=== PATIENT | male | born 1950 | race American Indian/Alaskan Native ===

== ENCOUNTER 2020-11-07 17:29 | Emergency (ER) | payer MEDICARE, OTHER ==
[~2020-11-07] VITALS: Ht 180.3 cm; Wt 136.4 kg
[2020-11-07 18:17] LABS: BASOPHILS % (AUTO) 0.1 % (0-1); EOSINOPHILS % (AUTO) 0 % (0-6); HEMATOCRIT 36.9 % (42.0-52.0); HEMOGLOBIN 12.4 g/dl (14.0-17.9); LYMPHOCYTES # (AUTO) 1.1 X10'3 (1.1-4.8); LYMPHOCYTES % (AUTO) 3.6 % (21-51); MEAN CORPUSCULAR HEMOGLOBIN 30.4 PG (27.0-31.0); MEAN CORPUSCULAR HGB CONC 33.5 g/dL (33.0-36.5); MEAN CORPUSCULAR VOLUME 90.8 FL (78-98); MEAN PLATELET VOLUME 8.1 FL (7.4-10.4); MONOCYTES # (AUTO) 2.3 X10'3 (0-0.9); MONOCYTES % (AUTO) 7.7 % (2-12); NEUTROPHILS # (AUTO) 26.3 X10'3 (1.8-7.7); NEUTROPHILS % (AUTO) 88.6 % (42-75); PLATELET COUNT 253 X10'3 (140-440); RED BLOOD COUNT 4.06 X10'6 (4.70-6.10); RED CELL DISTRIBUTION WIDTH 13.8 % (11.5-14.5)
[2020-11-07 18:24] LABS: WHITE BLOOD COUNT 29.7 X10'3 (4.5-11.0)
[2020-11-07 18:42] LABS: ALANINE AMINOTRANSFERASE 33 U/L (12-78); ALBUMIN 2.4 G/DL (3.4-5.0); ALBUMIN/GLOBULIN RATIO 0.5 (1.1-1.5); ALKALINE PHOSPHATASE 141 IU/L (46-116); ANION GAP 10 (8-16); ASPARTATE AMINO TRANSFERASE 19 U/L (10-37); BILIRUBIN,TOTAL 1.2 MG/DL (0.1-1.0); BLOOD UREA NITROGEN 35 MG/DL (7-18); BUN/CREATININE RATIO 21.2 (5.4-32.0); CALCIUM 8.2 MG/DL (8.5-10.1); CHLORIDE 94 MMOL/L (99-107); CREATININE 1.65 MG/DL (0.60-1.10); GLUCOSE 371 MG/DL (70-104); POTASSIUM 4.6 MMOL/L (3.5-5.1); SODIUM 125 MMOL/L (135-145); TOTAL CARBON DIOXIDE 20.9 MMOL/L (24-32); TOTAL PROTEIN 7.6 G/DL (6.4-8.2); eGFR 41 ML/MIN
[2020-11-07 18:47] LABS: TOTAL CELLS COUNTED 100
[2020-11-07 18:53] LABS: PLATELET ESTIMATE NORMAL; TOXIC GRANULATION 1+
[2020-11-07] MEDS ORDERED: CefTRIAXone 2gm/D5W 50ml BAG 50 ML IV ONE (19:30)
[2020-11-07] MEDS ORDERED: normal saline 1000ML IV soln IV ONE (19:50)
[2020-11-07] MEDS ORDERED: AZIT250T PO (20:58)
[2020-11-07] MEDS ORDERED: ondansetron/PF 4mg/2ml inj IV ONE (21:10)
[2020-11-07] MEDS ORDERED: diltiazem-NS 100mg/100ml 100 ML IV SCH (21:10)
[2020-11-07] MEDS ORDERED: diltiazem 5mg/ml 5ml inj. IV ONE (21:10)
[2020-11-07 21:22] LABS: CLARITY,URINE CLEAR (Clear); COLOR,URINE AMBER (Yellow); GLUCOSE, URINE >=1000 mg/dl (Neg); KETONES,URINE NEGATIVE (Neg); LEUKOCYTE ESTERASE ,URINE NEGATIVE (Neg); NITRITES, URINE NEGATIVE (Neg); OCCULT BLOOD,URINE TRACE-INTACT (Neg); PROTEIN,URINE 100 mg/dl (Neg); UROBILINOGEN,URINE >=8.0 E.U/dL (0.2-1.0)
[2020-11-07 21:24] LABS: UA COLLECTION TYPE CLN CATCH MIDSTREAM
[2020-11-07] MEDS ORDERED: acetaminophen 325mg tablet PO ONE (21:30)
[2020-11-07 21:37] LABS: AMORPHOUS URATES 2+; BACTERIA,URINE NONE SEEN /HPF (Neg); MUCUS STRANDS NONE SEEN /LPF (Neg); RBC,URINE 0-2 /HPF (0-2); SQUAMOUS EPITHELIAL CELL,UR FEW /LPF (FEW); WBC,URINE 0-4 /HPF (0-4)
[2020-11-07] MEDS ORDERED: HYDROcodone/acetaminophen 10/325mg tab PO ONE (21:50)
[2020-11-07 22:39] VITALS: BP 109/81
== END 2020-11-07 22:45 | disposition left against medical advice (07) ==
LOC: ER 17:32
DX: A41.9 Sepsis, unspecified organism (principal); J18.9 Pneumonia, unspecified organism; R50.9 Fever, unspecified; R06.02 Shortness of breath; R05 Cough; E86.0 Dehydration; E87.1 Hypo-osmolality and hyponatremia; I48.91 Unspecified atrial fibrillation; I10 Essential (primary) hypertension; E11.9 Type 2 diabetes mellitus without complications; Z79.2 Long term (current) use of antibiotics
CPT/HCPCS: 36415; 71045; 80053; 81001; 83605; 83735; 83880; 84145; 84484; 85007; 85025; 87040; 87502; 87503; 93005; 96365; 96367; 96375; 99285; J0696; J2405; J7030; J3490

== ENCOUNTER 2020-11-26 16:28 | Emergency (ER) | payer MEDICARE, OTHER ==
[~2020-11-26] VITALS: Ht 180.3 cm; Wt 136.4 kg
[2020-11-26 16:38] VITALS: BP 159/80
[2020-11-26 18:50] LABS: BASOPHILS % (AUTO) 0.6 % (0-1); EOSINOPHILS # (AUTO) 0.1 X10'3 (0-0.9); EOSINOPHILS % (AUTO) 1.2 % (0-6); HEMATOCRIT 39.9 % (42.0-52.0); HEMOGLOBIN 13.4 g/dl (14.0-17.9); LYMPHOCYTES # (AUTO) 1.3 X10'3 (1.1-4.8); LYMPHOCYTES % (AUTO) 16.3 % (21-51); MEAN CORPUSCULAR HEMOGLOBIN 30.1 PG (27.0-31.0); MEAN CORPUSCULAR HGB CONC 33.7 g/dL (33.0-36.5); MEAN CORPUSCULAR VOLUME 89.3 FL (78-98); MEAN PLATELET VOLUME 7.4 FL (7.4-10.4); MONOCYTES # (AUTO) 0.7 X10'3 (0-0.9); MONOCYTES % (AUTO) 8.8 % (2-12); NEUTROPHILS # (AUTO) 5.6 X10'3 (1.8-7.7); NEUTROPHILS % (AUTO) 73.1 % (42-75); PLATELET COUNT 284 X10'3 (140-440); RED BLOOD COUNT 4.47 X10'6 (4.70-6.10); RED CELL DISTRIBUTION WIDTH 14.5 % (11.5-14.5); WHITE BLOOD COUNT 7.7 X10'3 (4.5-11.0)
[2020-11-26 18:59] LABS: ALANINE AMINOTRANSFERASE 104 U/L (12-78); ALBUMIN 2.8 G/DL (3.4-5.0); ALBUMIN/GLOBULIN RATIO 0.5 (1.1-1.5); ALKALINE PHOSPHATASE 125 IU/L (46-116); ANION GAP 6 (8-16); ASPARTATE AMINO TRANSFERASE 103 U/L (10-37); BILIRUBIN,TOTAL 0.6 MG/DL (0.1-1.0); BLOOD UREA NITROGEN 10 MG/DL (7-18); BUN/CREATININE RATIO 10.1 (5.4-32.0); CALCIUM 8.6 MG/DL (8.5-10.1); CHLORIDE 94 MMOL/L (99-107); CREATININE 0.99 MG/DL (0.60-1.10); GLUCOSE 158 MG/DL (70-104); POTASSIUM 4.7 MMOL/L (3.5-5.1); SODIUM 129 MMOL/L (135-145); TOTAL CARBON DIOXIDE 28.9 MMOL/L (24-32); TOTAL PROTEIN 8.6 G/DL (6.4-8.2); eGFR 74 ML/MIN
[2020-11-26] MEDS ORDERED: BENZ-16 PO (19:12)
== END 2020-11-26 19:29 | disposition home or self-care (01) ==
LOC: ER 16:29
DX: R05 Cough (principal); R50.9 Fever, unspecified; R07.89 Other chest pain; I10 Essential (primary) hypertension; E11.9 Type 2 diabetes mellitus without complications; Z79.899 Other long term (current) drug therapy
CPT/HCPCS: 36415; 71045; 80053; 85025; 99284

== ENCOUNTER 2020-12-02 13:33 | Emergency (ER) | payer MEDICARE, OTHER ==
[~2020-12-02] VITALS: Ht 180.3 cm; Wt 136.4 kg
[~2020-12-02 13:33] MED LIST: BENZ-16 PO
--- NOTE | 2020-12-02 14:12 | NUR ---
MD Hardy updated on pt chief complaint, VSs and Covid status. Received VO to order portable chest x-ray and further orders to be placed by provider.
[2020-12-02] MEDS ORDERED: BENZ-16 PO (15:07)
[2020-12-02] MEDS ORDERED: PRED50TA PO (15:07)
== END 2020-12-02 15:27 | disposition home or self-care (01) ==
LOC: ER 13:34
DX: U07.1 COVID-19 (principal); J12.82 Pneumonia due to coronavirus disease 2019; R05 Cough; R09.81 Nasal congestion; R06.02 Shortness of breath; I10 Essential (primary) hypertension; E11.9 Type 2 diabetes mellitus without complications; Z79.899 Other long term (current) drug therapy
CPT/HCPCS: 71045; 99283

== ENCOUNTER 2021-05-05 11:42 | Day surgery (SDC) | payer MEDICARE, OTHER ==
[2021-04-30 10:14] LABS: BASOPHILS # (AUTO) 0.1 X10'3 (0-0.2); BASOPHILS % (AUTO) 0.8 % (0-1); EOSINOPHILS # (AUTO) 0.3 X10'3 (0-0.9); EOSINOPHILS % (AUTO) 3.1 % (0-6); HEMATOCRIT 41.1 % (42.0-52.0); LYMPHOCYTES # (AUTO) 2.3 X10'3 (1.1-4.8); MEAN CORPUSCULAR VOLUME 88.4 FL (78-98); MEAN PLATELET VOLUME 7.5 FL (7.4-10.4); MONOCYTES # (AUTO) 0.9 X10'3 (0-0.9); MONOCYTES % (AUTO) 9.8 % (2-12); NEUTROPHILS # (AUTO) 5.6 X10'3 (1.8-7.7); NEUTROPHILS % (AUTO) 61.3 % (42-75); PLATELET COUNT 279 X10'3 (140-440); RED BLOOD COUNT 4.65 X10'6 (4.70-6.10); RED CELL DISTRIBUTION WIDTH 14.1 % (11.5-14.5); WHITE BLOOD COUNT 9.1 X10'3 (4.5-11.0)
[2021-04-30 10:25] LABS: ALBUMIN 3.3 G/DL (3.4-5.0); ANION GAP 7 (8-16); BLOOD UREA NITROGEN 20 MG/DL (7-18); BUN/CREATININE RATIO 17.4 (5.4-32.0); CALCIUM 8.7 MG/DL (8.5-10.1); CHLORIDE 101 MMOL/L (99-107); CREATININE 1.15 MG/DL (0.60-1.10); GLUCOSE 163 MG/DL (70-104); POTASSIUM 4.6 MMOL/L (3.5-5.1); SODIUM 136 MMOL/L (135-145); eGFR 63 ML/MIN
[2021-04-30 10:28] LABS: PARTIAL THROMBOPLASTIN TIME 31 SECONDS (22-32)
[~2021-05-05] VITALS: Ht 180.3 cm; Wt 137.7 kg
[2021-05-05] VITALS (8 sets, daily range): BP systolic 93–123; BP diastolic 44–65
[~2021-05-05 11:42] MED LIST changes: -BENZ-16 PO; +PRED50TA PO
[2021-05-05] MEDS ORDERED: fentaNYL/PF 50MCG/1 ML 2ML syringe ONE (12:03)
[2021-05-05] MEDS ORDERED: midazolam 1 mg/ML 2ml injection ONE (12:03)
[2021-05-05] MEDS ORDERED: nitroGLYCERIN-Tridil 50MG/D5W 250 ML IV ONE (12:08)
[2021-05-05] MEDS ORDERED: verapamil 2.5 mg/ml inj IV ONE (12:08)
[2021-05-05] MEDS ORDERED: LIDOcaine 1% (10mg/ml)w/preservative injection 20ml MDV ONE (12:10)
[2021-05-05] MEDS ORDERED: iohexol 350MG/ML 100ml bottle IV ONE (12:11)
[2021-05-05] MEDS ORDERED: LANTUS SUBCUT (12:17)
[2021-05-05] MEDS ORDERED: METF-438 PO (12:17)
[2021-05-05] MEDS ORDERED: FLO110IN INH (12:17)
[2021-05-05] MEDS ORDERED: HYDR-3972 PO (12:17)
[2021-05-05] MEDS ORDERED: SACU1TAB PO (12:17)
[2021-05-05] MEDS ORDERED: EXEN10PE3 (12:17)
[2021-05-05] MEDS ORDERED: BISO5TAB21 PO (12:17)
[2021-05-05] MEDS ORDERED: SPIR25TA5 PO (12:17)
[2021-05-05] MEDS ORDERED: APIX5TAB3 PO (12:17)
[2021-05-05] MEDS ORDERED: FLO0.4C PO (12:17)
[2021-05-05] MEDS ORDERED: ALBU18HF2 (12:17)
[2021-05-05] MEDS ORDERED: SAXA5TAB PO (12:17)
[2021-05-05] MEDS ORDERED: CHOL20002 PO (12:18)
[2021-05-05] MEDS ORDERED: LIDOcaine/PRILOcaine 5gm cream TP ONE (12:20)
[2021-05-05] MEDS ORDERED: LORazepam 0.5 MG tablet PO PRN (12:20)
[2021-05-05] MEDS ORDERED: normal saline 1,000 ML IV SCH (12:20)
[2021-05-05] MEDS ORDERED: diphenhydrAMINE 25mg capsule PO PRN (12:20)
[2021-05-05] MEDS ORDERED: heparin 1,000unit/ml 10ml vial 10 ML ONE (12:22)
[2021-05-05] MEDS ORDERED: ondansetron/PF 4mg/2ml inj IV PRN (13:50)
[2021-05-05] MEDS ORDERED: OXAZEpam 15mg capsule PO PRN (13:55)
[2021-05-05] MEDS ORDERED: proCHLORperazine 10 MG/2 ml inj IV PRN (13:55)
== END 2021-05-05 15:40 | disposition home or self-care (01) ==
LOC: SSTAY O 11:42
PROVIDERS: ATTEND Internal Medicine Interventional Cardiology
DX: R94.39 Abnormal result of other cardiovascular function study (principal); I25.10 Atherosclerotic heart disease of native coronary artery without angina pectoris; G47.33 Obstructive sleep apnea (adult) (pediatric); E11.9 Type 2 diabetes mellitus without complications; I10 Essential (primary) hypertension; I48.91 Unspecified atrial fibrillation; I42.0 Dilated cardiomyopathy; M19.90 Unspecified osteoarthritis, unspecified site; E78.5 Hyperlipidemia, unspecified; E66.9 Obesity, unspecified; Z68.41 Body mass index [BMI] 40.0-44.9, adult; Z79.899 Other long term (current) drug therapy; Z87.891 Personal history of nicotine dependence; Z79.4 Long term (current) use of insulin; Z86.16 Personal history of COVID-19
CPT/HCPCS: 36415; 80048; 85025; 85610; 85730; 93005; 93458; 99152; 99153; C1769; C1894; J1644; J2001; J2250; J3010; J7030; Q0163; Q9967; A4620; A5120; J3490

== ENCOUNTER 2022-09-12 23:10 | Inpatient (IN) | payer MEDICARE, OTHER ==
[~2022-09-12] VITALS: Ht 180.3 cm; Wt 145.6 kg
[~2022-09-12 23:10] MED LIST changes: +ALBU18HF2; +APIX5TAB3 PO; +BISO5TAB21 PO; +CHOL20002 PO; +EXEN10PE3; +FLO0.4C PO; +FLO110IN INH; +HYDR-3972 PO; +LANTUS SUBCUT; +METF-438 PO; -PRED50TA PO; +SACU1TAB PO; +SAXA5TAB PO; +SPIR25TA5 PO
[2022-09-12 23:49] LABS: BASOPHILS # (AUTO) 0.1 X10'3 (0-0.2); BASOPHILS % (AUTO) 0.3 % (0-1); EOSINOPHILS % (AUTO) 0.1 % (0-6); HEMATOCRIT 39.6 % (42.0-52.0); HEMOGLOBIN 13.4 g/dl (14.0-17.9); LYMPHOCYTES % (AUTO) 6.9 % (21-51); MEAN CORPUSCULAR HEMOGLOBIN 30.2 PG (27.0-31.0); MEAN CORPUSCULAR HGB CONC 33.8 g/dL (33.0-36.5); MEAN CORPUSCULAR VOLUME 89.2 FL (78-98); MEAN PLATELET VOLUME 7.4 FL (7.4-10.4); MONOCYTES # (AUTO) 2.5 X10'3 (0-0.9); MONOCYTES % (AUTO) 8.5 % (2-12); NEUTROPHILS # (AUTO) 24.3 X10'3 (1.8-7.7); NEUTROPHILS % (AUTO) 84.2 % (42-75); PLATELET COUNT 236 X10'3 (140-440); RED BLOOD COUNT 4.44 X10'6 (4.70-6.10); RED CELL DISTRIBUTION WIDTH 14.2 % (11.5-14.5)
[2022-09-12 23:52] LABS: WHITE BLOOD COUNT 28.9 X10'3 (4.5-11.0)
[2022-09-13] VITALS (13 sets, daily range): BP systolic 95–119; BP diastolic 47–63
[2022-09-13 00:03] LABS: ALANINE AMINOTRANSFERASE 21 U/L (12-78); ALBUMIN/GLOBULIN RATIO 0.6 (1.1-1.5); ALKALINE PHOSPHATASE 81 IU/L (46-116); ANION GAP 12 (8-16); ASPARTATE AMINO TRANSFERASE 21 U/L (10-37); BILIRUBIN,TOTAL 1.3 MG/DL (0.1-1.0); BLOOD UREA NITROGEN 38 MG/DL (7-18); BUN/CREATININE RATIO 17.8 (5.4-32.0); CALCIUM 8.5 MG/DL (8.5-10.1); CHLORIDE 97 MMOL/L (99-107); CREATININE 2.14 MG/DL (0.60-1.10); GLUCOSE 141 MG/DL (70-104); POTASSIUM 4.1 MMOL/L (3.5-5.1); SODIUM 131 MMOL/L (135-145); TOTAL CARBON DIOXIDE 22.1 MMOL/L (24-32); eGFR 30 ML/MIN
[2022-09-13] MEDS ORDERED: CefTRIAXone 2gm/D5W 50ml BAG 50 ML IV ONE ×2 (00:20→01:10)
[2022-09-13] MEDS ORDERED: normal saline 1000ML IV soln IV ONE (00:20)
[2022-09-13] MEDS ORDERED: normal saline 1000ML IV soln IVB ONE ×2 (00:30→01:35)
[2022-09-13 00:34] LABS: TOTAL CELLS COUNTED 100
[2022-09-13 00:35] LABS: PLATELET ESTIMATE NORMAL; TOXIC GRANULATION 1+; TOXIC VACUOLATION 1+
[2022-09-13] MEDS ORDERED: piperacillin/tazo 3.375gm/50ml 50 ML IV STA (01:06)
[2022-09-13 01:13] LABS: CLARITY,URINE SLIGHTLY CLOUDY (Clear); COLOR,URINE AMBER (Yellow); GLUCOSE, URINE 500 mg/dl (Neg); KETONES,URINE TRACE mg/dl (Neg); LEUKOCYTE ESTERASE ,URINE TRACE (Neg); NITRITES, URINE NEGATIVE (Neg); OCCULT BLOOD,URINE TRACE-INTACT (Neg); PH,URINE 5.5 (4.8-8.0); PROTEIN,URINE 30 mg/dl (Neg); UROBILINOGEN,URINE 0.2 E.U/dL (0.2-1.0)
[2022-09-13 01:24] LABS: UA COLLECTION TYPE URINAL
[2022-09-13 01:27] LABS: BACTERIA,URINE 1+ /HPF (Neg); RBC,URINE NONE SEEN /HPF (0-2); SQUAMOUS EPITHELIAL CELL,UR MANY /LPF (FEW)
--- NOTE | 2022-09-13 01:30 | NUR ---
PT COMPLAINED OF CP. PROVIDER DR. WEBB WAS NOTIFIED. EKG DONE.
[2022-09-13] MEDS ORDERED: BISO10TA16 PO (01:52)
[2022-09-13] MEDS ORDERED: DAPA5TAB PO (01:52)
[2022-09-13] MEDS ORDERED: NORepinephrine 8mg/ 250ml NS 250 ML IV PRN ×2 (02:15→10:53)
--- NOTE | 2022-09-13 04:01 | NUR ---
SPUTUM CULTURE WAS REJECTED. EDUCATED PT. ON HOW TO GIVE PROPER SPUTUM SPECIMEN. PT STATED THAT HE CAN NOT GIVE IT AT THIS TIME. DR. NINO NOTIFIED.
--- NOTE | 2022-09-13 05:40 | NUR ---
norepi not admistered for map staying 60 and above.
[2022-09-13] MEDS ORDERED: piperacillin/tazo 3.375gm/50ml 50 ML IV ONE ×3 (06:00→08:00)
--- NOTE | 2022-09-13 09:08 | NUR ---
CL TO LEFT NECK BY DR MCMAHON. PT SISSY WELL. DR MINOR AT BS FOR ADMIT
[2022-09-13] MEDS ORDERED: ondansetron/PF 4mg/2ml inj IV PRN (09:45)
[2022-09-13] MEDS ORDERED: magnesium hydroxide 30ml (MOM) UD suspension PO PRN (09:45)
[2022-09-13] MEDS ORDERED: LIDOcaine 2% 10ml TOPICAL JELLY (Urojet) TP ONE (09:45)
[2022-09-13] MEDS ORDERED: acetaminophen 325mg tablet PO PRN ×2 (09:45)
[2022-09-13] MEDS ORDERED: CefTRIAXone/D5W-Rocephin 1gm 50 ML IV SCH (09:58)
[2022-09-13] MEDS ORDERED: levoFLOXACIN-Levaquin 750MG/D5 150 ML IV SCH (09:59)
--- NOTE | 2022-09-13 11:00 | NUR ---
Patient to room 2014 via [facility]. Upon arrival patient refused to put a gown on. He used several profanities to express how he would not be putting a gown on. Dr. Darling came and spoke with the patient. Dr. Darling stated that he (the patient) is very sick and needs to comply with what nursing is saying so that they (the nurses) can help him get better. Patient eventually agreed. Patient placed in gown, skin check done, patient placed on our monitors and was let in bedside.
[2022-09-13] MEDS: normal saline 1000ml 1,000 ML IV SCH ×3 (11:36→20:08)
[2022-09-13] MEDS ORDERED: normal saline 1000ml 1,000 ML IVB ONE (12:05)
[2022-09-13] MEDS ORDERED: SACU1TAB7 PO (13:10)
[2022-09-13] MEDS ORDERED: normal saline 1000ml 1,000 ML IV SCH (13:25)
[2022-09-13] MEDS ORDERED: normal saline 1000ml 1,000 ML IV ONE (13:25)
[2022-09-13] MEDS ORDERED: ALBU17AE26 IH (15:18)
--- NOTE | 2022-09-13 18:07 | NUR ---
Problems reprioritized. Patient report given, questions answered & plan of care reviewed with KOTA Yanes.
[2022-09-13] MEDS: apixaban 5mg tablet PO SCH (20:06)
[2022-09-14] VITALS (13 sets, daily range): BP systolic 94–153; BP diastolic 54–83
[2022-09-14] MEDS ORDERED: CefTRIAXone/D5W-Rocephin 1gm 50 ML IV SCH (01:00)
[2022-09-14 03:11] LABS: BASOPHILS % (AUTO) 0.3 % (0-1); EOSINOPHILS # (AUTO) 0.1 X10'3 (0-0.9); EOSINOPHILS % (AUTO) 0.9 % (0-6); HEMATOCRIT 36.9 % (42.0-52.0); HEMOGLOBIN 12.2 g/dl (14.0-17.9); LYMPHOCYTES # (AUTO) 1.7 X10'3 (1.1-4.8); LYMPHOCYTES % (AUTO) 10.3 % (21-51); MEAN CORPUSCULAR HEMOGLOBIN 29.6 PG (27.0-31.0); MEAN CORPUSCULAR VOLUME 89.7 FL (78-98); MEAN PLATELET VOLUME 7.7 FL (7.4-10.4); MONOCYTES # (AUTO) 1.3 X10'3 (0-0.9); MONOCYTES % (AUTO) 7.9 % (2-12); NEUTROPHILS % (AUTO) 80.6 % (42-75); PLATELET COUNT 207 X10'3 (140-440); RED BLOOD COUNT 4.11 X10'6 (4.70-6.10); RED CELL DISTRIBUTION WIDTH 14.5 % (11.5-14.5); WHITE BLOOD COUNT 16.2 X10'3 (4.5-11.0)
[2022-09-14 03:24] LABS: APTT 32 SECONDS (22-32)
[2022-09-14 03:25] LABS: ALANINE AMINOTRANSFERASE 19 U/L (12-78); ALBUMIN 2.3 G/DL (3.4-5.0); ALBUMIN/GLOBULIN RATIO 0.5 (1.1-1.5); ALKALINE PHOSPHATASE 72 IU/L (46-116); ANION GAP 7 (8-16); ASPARTATE AMINO TRANSFERASE 16 U/L (10-37); BILIRUBIN,TOTAL 0.5 MG/DL (0.1-1.0); BLOOD UREA NITROGEN 25 MG/DL (7-18); BUN/CREATININE RATIO 21.9 (5.4-32.0); CALCIUM 7.9 MG/DL (8.5-10.1); CHLORIDE 107 MMOL/L (99-107); CREATININE 1.14 MG/DL (0.60-1.10); GLUCOSE 138 MG/DL (70-104); MAGNESIUM 2.1 MG/DL (1.5-2.4); PHOSPHORUS 2.4 MG/DL (2.3-4.5); POTASSIUM 4.3 MMOL/L (3.5-5.1); SODIUM 138 MMOL/L (135-145); TOTAL CARBON DIOXIDE 24.4 MMOL/L (24-32); TOTAL PROTEIN 6.8 G/DL (6.4-8.2); eGFR 63 ML/MIN
[2022-09-14 03:39] LABS: PLATELET ESTIMATE NORMAL; TOTAL CELLS COUNTED 100
[2022-09-14 03:40] LABS: TOXIC GRANULATION 1+; TOXIC VACUOLATION 1+
[2022-09-14] MEDS: normal saline 1000ml 1,000 ML IV SCH ×3 (07:26→21:56)
[2022-09-14] MEDS: apixaban 5mg tablet PO SCH ×2 (07:26→20:36)
--- NOTE | 2022-09-14 09:11 | NUR ---
Problems reprioritized. Patient report given, questions answered & plan of care reviewed with Francisca ESCUDERO.
--- NOTE | 2022-09-14 09:30 | NUR ---
Patient in room PCU 3025. I have received report from Teena ESCUDERO and had the opportunity to ask questions and assume patient care.
[2022-09-14] MEDS ORDERED: FLU VACC QS2022-23(6MOS UP)/PF 60 MCG/0.5 ML SYRINGE IMVAC ONE (12:00)
--- NOTE | 2022-09-14 13:17 | NUR ---
DM Consult: Pt admit DX septic shock, TORY, and PNA w/ acute respiratory failure per EMR. Pt hx T2DM A1C 6.7%; A1C appropriate w/ Glu 138-166mg/dl not on glycemic protocol eating ~88-100% initial Na-restricted meals per EMR. Will add double protein WL to assist meeting nutrient needs; dietary notified. [facility] 09/12. Will continue to monitor for further nutrition intervention needs. Rec: 1. continue Na-restricted diet per MD; double protein WL 2. routine bowel care 3. weekly wts Addendum: 09/14/22 at [address] Amended: Links added.
[2022-09-14] MEDS ORDERED: albuterol 2.5 MG/3 ML nebule NEB PRN (13:50)
[2022-09-14] MEDS ORDERED: azithromycin/NS 500mg/250ml 250 ML IV SCH (15:00)
[2022-09-14] MEDS: levoFLOXACIN-Levaquin 750MG/D5 150 ML IV SCH (16:53)
[2022-09-14] MEDS: atenolol 50mg tablet PO SCH (16:58)
--- NOTE | 2022-09-14 18:47 | NUR ---
Problems reprioritized. Patient report given, questions answered & plan of care reviewed with Bety RN, patient stable at transfer of care.
--- NOTE | 2022-09-14 18:51 | NUR ---
Preceptee documentation: I have reviewed and agree with all interventions, assessments performed and documented by Didier ESCUDERO.
--- NOTE | 2022-09-14 18:52 | NUR ---
Preceptee Medication Administration: For this medication-pass time frame, all medication were reviewed, dispensed, administered and documented per hospital policy by Alonzo ESCUDERO.
[2022-09-14] MEDS ORDERED: DEXTROSE 15 GM of carb/4 tabs (each vial/BOTTLE has 4 tablets) PO PRN ×2 (18:55)
[2022-09-14] MEDS ORDERED: MESSAGE TO PHARMACY PO ONE (18:55)
[2022-09-14] MEDS ORDERED: glucagon, human recombinant 1mg kit SUBCUT PRN (18:55)
[2022-09-14] MEDS ORDERED: dextrose 50%-water 50ml dispensing syringe IV PRN ×2 (18:55)
[2022-09-14] MEDS ORDERED: insulin Lispro (HumaLOG) vial - multi-dose SQ SCH (18:55)
[2022-09-14] MEDS ORDERED: insulin glargine (Lantus) pen - multi-dose SQ SCH (21:00)
[2022-09-15 02:00] VITALS: BP 143/68
[2022-09-15] MEDS: normal saline 1000ml 1,000 ML IV SCH (05:37)
[2022-09-15 06:00] VITALS: BP 117/7
[2022-09-15 06:09] LABS: BASOPHILS % (AUTO) 0.4 % (0-1); EOSINOPHILS # (AUTO) 0.2 X10'3 (0-0.9); EOSINOPHILS % (AUTO) 2.4 % (0-6); HEMATOCRIT 38.2 % (42.0-52.0); HEMOGLOBIN 12.9 g/dl (14.0-17.9); LYMPHOCYTES # (AUTO) 1.8 X10'3 (1.1-4.8); LYMPHOCYTES % (AUTO) 17.4 % (21-51); MEAN CORPUSCULAR HEMOGLOBIN 30.3 PG (27.0-31.0); MEAN CORPUSCULAR HGB CONC 33.8 g/dL (33.0-36.5); MEAN CORPUSCULAR VOLUME 89.7 FL (78-98); MEAN PLATELET VOLUME 7.9 FL (7.4-10.4); MONOCYTES % (AUTO) 9.4 % (2-12); NEUTROPHILS # (AUTO) 7.2 X10'3 (1.8-7.7); NEUTROPHILS % (AUTO) 70.4 % (42-75); PLATELET COUNT 231 X10'3 (140-440); RED BLOOD COUNT 4.26 X10'6 (4.70-6.10); RED CELL DISTRIBUTION WIDTH 14.4 % (11.5-14.5); WHITE BLOOD COUNT 10.2 X10'3 (4.5-11.0)
[2022-09-15 06:15] LABS: ALANINE AMINOTRANSFERASE 32 U/L (12-78); ALBUMIN 2.4 G/DL (3.4-5.0); ALBUMIN/GLOBULIN RATIO 0.5 (1.1-1.5); ALKALINE PHOSPHATASE 77 IU/L (46-116); ANION GAP 10 (8-16); ASPARTATE AMINO TRANSFERASE 23 U/L (10-37); BILIRUBIN,TOTAL 0.6 MG/DL (0.1-1.0); BLOOD UREA NITROGEN 15 MG/DL (7-18); BUN/CREATININE RATIO 14.9 (5.4-32.0); CALCIUM 8.4 MG/DL (8.5-10.1); CHLORIDE 105 MMOL/L (99-107); CREATININE 1.01 MG/DL (0.60-1.10); GLUCOSE 168 MG/DL (70-104); MAGNESIUM 1.8 MG/DL (1.5-2.4); PHOSPHORUS 2.3 MG/DL (2.3-4.5); POTASSIUM 4.1 MMOL/L (3.5-5.1); SODIUM 138 MMOL/L (135-145); TOTAL CARBON DIOXIDE 23.1 MMOL/L (24-32); TOTAL PROTEIN 7.3 G/DL (6.4-8.2); eGFR 72 ML/MIN
[2022-09-15 06:17] LABS: APTT 32 SECONDS (22-32)
--- NOTE | 2022-09-15 06:41 | NUR ---
Problems reprioritized. Patient report given, questions answered & plan of care reviewed with Francisca ESCUDERO.
--- NOTE | 2022-09-15 07:06 | NUR ---
Patient in room PCU 3025. I have received report from Bety ESCUDERO and had the opportunity to ask questions and assume patient care.
[2022-09-15] MEDS ORDERED: tamsulosin 0.4mg capsule PO SCH (08:00)
[2022-09-15] MEDS: apixaban 5mg tablet PO SCH (08:47)
[2022-09-15 08:48] VITALS: BP_SYST 117
[2022-09-15] MEDS: atenolol 50mg tablet PO SCH (08:48)
[2022-09-15] MEDS: levoFLOXACIN-Levaquin 750MG/D5 150 ML IV SCH (08:48)
[2022-09-15] MEDS ORDERED: LEVO-65 PO (12:19)
--- NOTE | 2022-09-15 14:52 | NUR ---
Patient stable for discharge per Dr. Cornell. All discharge instructions reviewed with patient and all questions answered. Pt verbalized understanding. All new prescriptions e-scripted to [facility] in [place]. PIV discontinued, cannula intact. Tele discontinued. All belongings collected and sent with patient. Wheeled to lobby via nursing staff.
== END 2022-09-15 13:30 | disposition home or self-care (01) | DRG 871 ==
LOC: ER 23:11 → ED HOLD 09-13 09:54 → CICU 2S 09-13 10:50 → PCU 3S 09-14 09:48
PROVIDERS: ADMIT Internal Medicine Critical Care Medicine; ATTEND Internal Medicine Critical Care Medicine
DX: A41.9 Sepsis, unspecified organism (principal); J18.9 Pneumonia, unspecified organism; N17.0 Acute kidney failure with tubular necrosis; J96.00 Acute respiratory failure, unspecified whether with hypoxia or hypercapnia; R65.21 Severe sepsis with septic shock; I42.9 Cardiomyopathy, unspecified; I48.20 Chronic atrial fibrillation, unspecified; N39.0 Urinary tract infection, site not specified; Z68.41 Body mass index [BMI] 40.0-44.9, adult; Z20.822 Contact with and (suspected) exposure to COVID-19; E66.01 Morbid (severe) obesity due to excess calories; G47.33 Obstructive sleep apnea (adult) (pediatric); E86.0 Dehydration; R44.1 Visual hallucinations; E11.9 Type 2 diabetes mellitus without complications; I10 Essential (primary) hypertension; Z79.84 Long term (current) use of oral hypoglycemic drugs; Z82.3 Family history of stroke; Z82.49 Family history of ischemic heart disease and other diseases of the circulatory system; Z83.3 Family history of diabetes mellitus; Z87.891 Personal history of nicotine dependence; Z23 Encounter for immunization; Z79.899 Other long term (current) drug therapy
CPT/HCPCS: 36415; 71045; 71250; 80053; 81001; 82948; 83036; 83605; 83735; 83880; 84100; 84145; 84484; 85007; 85025; 85610; 85730; 87040; 87081; 87205; 87502; 87503; 87635; 90686; 93005; 97116; 97161; 97530; 99285; A4358; A6213; A6258; A6402; C1751; C9803; G0378; J0456; J0696; J1815; J1956; J2543; J7030; J7040